=== PATIENT | female | born 1955 | race Caucasian/White ===

== ENCOUNTER → 2020-02-10 | Outpatient (REF) | payer MEDICARE, OTHER ==
[2020-02-10 18:42] LABS: APPEARANCE, URINE CLEAR (CLEAR); BACTERIA, URINE AUTO NEGATIVE (NEGATIVE); BILIRUBIN, URINE AUTO NEGATIVE (NEGATIVE); BLOOD, URINE BLOOD NEGATIVE (NEGATIVE); COLOR, URINE YELLOW (YELLOW); GLUCOSE, URINE (UA) AUTO NEGATIVE (NEGATIVE); KETONE, URINE AUTO NEGATIVE (NEGATIVE); LEUKOCYTE ESTERASE, URINE AUTO NEGATIVE (NEGATIVE); NITRITE, URINE AUTO NEGATIVE (NEGATIVE); PROTEIN, URINE AUTO NEGATIVE (NEGATIVE); RBC, URINE AUTO 0 /HPF (0-3); SQUAMOUS EPITHELIAL CELL UR AU 0 /HPF (0-6); UROBILINOGEN, URINE AUTO 0.2 mg/dL (0.0-2.0); WBC, URINE AUTO 0 /HPF (0-3)
== END ==
LOC: M SMT 16:57
PROVIDERS: ATTEND Urology
DX: R10.9 Unspecified abdominal pain (principal); C64.1 Malignant neoplasm of right kidney, except renal pelvis
CPT/HCPCS: 81001; 87086; G0463

== ENCOUNTER → 2020-02-17 | Outpatient (CLI) | payer MEDICARE, BC, OTHER ==
[~2020-02-17] MED LIST: ISOVUE-370 76% 100ML VIAL (Q9967) As Ordered ONE
--- NOTE | 2020-02-17 15:12 | REP ---
CT UROGRAM: CT urogram is performed. CT abdomen and pelvis performed prior to and following the intravenous administration of 100 mL of Isovue-370. Sagittal, coronal and 3D MIP reconstruction images are performed. Visualized lung bases are clear. The liver is unremarkable with no mass. The patient has had a prior cholecystectomy. There is expected prominence of the common bile duct. Tiny calcified granulomas are seen in the spleen. The adrenal glands are normal. No pancreatic mass is seen. No renal mass or calculus is seen. There is no hydroureteronephrosis. No ureteral or bladder abnormality is seen. There is no definite bladder mass identified. There is mild to moderate atherosclerotic calcification of the abdominal aorta without aneurysm. There is no adenopathy. There is no free air or free fluid. No bowel wall thickening is seen. The appendix is normal. No pelvic mass is seen. There are degenerative changes of the spine. There is a small hiatal hernia. IMPRESSION: No urinary tract abnormality identified as described above. Small hiatal hernia. Status post cholecystectomy. Electronically Signed by Kiel Kelly MD 02/17/2020 04:59 P
== END ==
LOC: M RAD 13:11 → EDUNIT# 14:00
PROVIDERS: ATTEND Urology
DX: R10.31 Right lower quadrant pain (principal); C64.1 Malignant neoplasm of right kidney, except renal pelvis; K44.9 Diaphragmatic hernia without obstruction or gangrene; Z90.49 Acquired absence of other specified parts of digestive tract
CPT/HCPCS: 74178; Q9967

== ENCOUNTER → 2022-10-28 | Outpatient (REF) | payer MEDICARE, BC, OTHER | LOC: M LAB REF 16:28 | PROVIDERS: ATTEND Ophthalmology | DX: H02.834 Dermatochalasis of left upper eyelid (principal); H02.831 Dermatochalasis of right upper eyelid ==

== ENCOUNTER → 2025-08-18 | Outpatient (REF) | payer MEDICARE, BC ==
[2025-08-18 18:53] LABS: C REACTIVE PROTEIN QUANTITATIV < 0.50 MG/DL (<1.0)
[2025-08-18 18:55] LABS: CPK CREATINE PHOSPHOKINASE 104 U/L (34-145); MAGNESIUM LEVEL 1.9 MG/DL (1.8-2.4); PHOSPHORUS LEVEL 3.3 MG/DL (2.4-5.1); TOTAL 25(OH) VITAMIN D 53.4 NG/ML (20.0-100.0); VITAMIN B12 LEVEL 498 PG/ML (211-911)
== END ==
LOC: M SFHCRHEU 15:07
PROVIDERS: ATTEND Internal Medicine
DX: M25.50 Pain in unspecified joint (principal); M79.10 Myalgia, unspecified site